=== PATIENT | female | born 1955 | race Hispanic/Latino ===

== ENCOUNTER 2017-05-15 00:02 | Emergency (ER) | payer MEDICARE ==
--- NOTE | 2017-05-15 15:43 | Emergency Department Report ---
ED Anxiety HPI - General Chief Complaint: Anxiety Stated Complaint: DETOX Time Seen by Provider: 05/15/17 15:39 Source: patient Mode of arrival: Ambulatory - History of Present Illness Initial Comments: Patient is a 62-year-old female who is presenting with anxiety from not having her Klonopin for the last 9 days. Patient states she can't H can't sleep and her back hurts and she shaking. Patient has a history of COPD he is on 2 L of oxygen at home she is reporting some increased shortness of breath secondary to mostly anxiety. Patient is denying any fevers chills nausea vomiting at this time. Patient states that her primary physician has stopped giving her Klonopin to her and will no longer be refilling this medication - Related Data Home Medications: Home Medications Medication Instructions Recorded Confirmed Last Taken Diazepam Tab [Valium] 5 mg PO TID PRN 10/08/13 10/10/13 10/05/13 HYDROcodone/APAP 10-325 [Ardara 1 tab PO Q6H PRN 10/08/13 10/10/13 10/05/13 10-325 mg TAB] Levalbuterol Tartrate [Xopenex Hfa] 2 puff IH Q4H 10/08/13 10/10/13 10/05/13 Previous Rx's Medication Instructions Recorded Last Taken Type ALBUTEROL NEB's [Proventil 0.083% 1 ampul IH TID #1 ml 10/12/13 Unknown Rx NEBS] Atenolol/Chlorthalidone [Tenoretic 1 tab PO DAILY 30 Days tablet 10/12/13 Unknown Rx 50-25 mg] Fluticasone/Salmeterol [Advair 1 each IH BID #1 disk.w.dev 10/12/13 Unknown Rx 250-50 Diskus] Levofloxacin [Levaquin] 500 mg PO QDAY #5 tablet 10/12/13 Unknown Rx Tiotropium [Spiriva] 1 cap PO DAILY 30 Days box 10/12/13 Unknown Rx predniSONE [Deltasone] 40 mg PO QDAY 5 Days tab 10/12/13 Unknown Rx Allergies/Adverse Reactions: Allergies Allergy/AdvReac Type Severity Reaction Status Date / Time cyclobenzaprine HCl Allergy Bleeding Verified 10/08/13 20:29 [From Flexeril] ibuprofen [From Motrin] Allergy Shortness Verified 10/08/13 20:29 of Breath Sulfa (Sulfonamide Allergy Shortness Verified 10/08/13 20:29 Antibiotics) of Breath ED Review of Systems ROS: Stated complaint: DETOX Other details as noted in HPI Comment: All other systems reviewed and negative ED Past Medical Hx - Past Medical History Hx Hypertension: Yes Hx Congestive Heart Failure: No Hx Diabetes: No Hx Arthritis: Yes Hx Psychiatric Treatment: Yes Hx Asthma: Yes Hx COPD: No - Surgical History Additional Surgical History: . tonsillectomy - Social History Smoking Status: Current Every Day Smoker Substance Use Type: None - Medications Home Medications: Home Medications Medication Instructions Recorded Confirmed Last Taken Type Diazepam Tab [Valium] 5 mg PO TID PRN 10/08/13 10/10/13 10/05/13 History HYDROcodone/APAP 10-325 [Ardara 1 tab PO Q6H PRN 10/08/13 10/10/13 10/05/13 History 10-325 mg TAB] Levalbuterol Tartrate [Xopenex Hfa] 2 puff IH Q4H 10/08/13 10/10/13 10/05/13 History ALBUTEROL NEB's [Proventil 0.083% 1 ampul IH TID #1 ml 10/12/13 Unknown Rx NEBS] Atenolol/Chlorthalidone [Tenoretic 1 tab PO DAILY 30 Days tablet 10/12/13 Unknown Rx 50-25 mg] Fluticasone/Salmeterol [Advair 1 each IH BID #1 disk.w.dev 10/12/13 Unknown Rx 250-50 Diskus] Levofloxacin [Levaquin] 500 mg PO QDAY #5 tablet 10/12/13 Unknown Rx Tiotropium [Spiriva] 1 cap PO DAILY 30 Days box 10/12/13 Unknown Rx predniSONE [Deltasone] 40 mg PO QDAY 5 Days tab 10/12/13 Unknown Rx ED Physical Exam - General Limitations: No Limitations General appearance: alert, in no apparent distress - Head Head exam: Present: atraumatic, normocephalic - Eye Eye exam: Present: normal appearance - ENT ENT exam: Present: mucous membranes moist - Neck Neck exam: Present: normal inspection - Respiratory Respiratory exam: Present: normal lung sounds bilaterally. Absent: respiratory distress - Cardiovascular Cardiovascular Exam: Present: regular rate, normal rhythm. Absent: systolic murmur, diastolic murmur, rubs, gallop - GI/Abdominal GI/Abdominal exam: Present: soft, normal bowel sounds - Extremities Exam Extremities exam: Present: normal inspection - Back Exam Back exam: Present: normal inspection - Neurological Exam Neurological exam: Present: alert, oriented X3 - Psychiatric Psychiatric exam: Present: normal affect, normal mood - Skin Skin exam: Present: warm, dry, intact, normal color. Absent: rash ED Course Vital Signs 05/15/17 05/15/17 05/15/17 01:54 14:19 15:00 Pulse Rate 75 83 Respiratory 18 16 18 Rate Blood Pressure 89/68 142/81 [Left] O2 Sat by Pulse 93 93 91 Oximetry 05/15/17 15:11 Pulse Rate Respiratory 18 Rate Blood Pressure [Left] O2 Sat by Pulse 95 Oximetry ED Medical Decision Making - Radiology Data Radiology results: image reviewed No acute process - Medical Decision Making is a 62-year-old female who is presenting with anxiety from not taking her Klonopin 0.1 mg for the last 9 days. Patient is not having any life- threatening withdrawal symptoms. Patient was counseled that we do not refill controlled substance medications from the emergency department. Patient is counseled that she will need to find a pain specialist or primary care to continue this medication. Critical care attestation.: If time is entered above; I have spent that time in minutes in the direct care of this critically ill patient, excluding procedure time. ED Disposition Clinical Impression: Benzodiazepine abuse Disposition: DC-01 TO HOME OR SELFCARE Is pt being admited?: No Does the pt Need Aspirin: No Condition: Fair Referrals: AJ RAMOS MD [Staff Physician] - 3-5 Days
--- NOTE | 2017-05-15 15:44 | XRay Report ---
CHEST XRAY, 2 VIEWS: History: Shortness of breath. Findings: There is mild diffuse interstitial coarsening. The lungs are hyperexpanded but clear. No infiltrate, pleural fluid or pneumothorax is detected. The cardiac silhouette and pulmonary vasculature are within normal limits for technique. The bony thorax is unremarkable. IMPRESSION: Changes consistent with mild COPD. No acute cardiopulmonary process.
[2017-05-15 16:46] VITALS: BP 135/72
== END 2017-05-15 16:46 | disposition home or self-care (01) ==
LOC: ED 00:02
DX: F13.10 Sedative, hypnotic or anxiolytic abuse, uncomplicated (principal); F41.9 Anxiety disorder, unspecified; R06.02 Shortness of breath
CPT/HCPCS: 71046; 99284